=== PATIENT | male | born 1960 ===

== ENCOUNTER → 2016-11-29 | Day surgery (SDC) | payer BC ==
[~2016-11-29] VITALS: Ht 182.9 cm; Wt 95.3 kg
[2016-11-29] VITALS (11 sets, daily range): BP systolic 135–166; BP diastolic 57–98
[~2016-11-29] MED LIST: Bacitracin Oint 15gm Tube TOPIC ONE; Cocaine 4% Vial TOPIC ONE; DiphenhydrAMINE 50mg/ml Inj IVP PRN; Esmolol 100mg/10ml Inj ONE; FISH OIL 1,2001 EAC2 PO; Glycopyrrolate 0.2mg/ml 1ml Vial ONE; Hydromorphone 0.5mg/0.5ml inj IVP PRN; Kenalog-40 1ml Vial ONE; Ketorolac 30mg Inj IV PRN; LORazepam Inj 2mg/ml 1ml IV PRN; LR 1000ml 1,000 ML IVLG SCH; LR 1000ml ONE; Labetalol 5mg/ml 20ml vial IV PRN; Lidocaine 1% 10mg/ml/Epi 0.005mg/ml 30ml vial INJ ONE; MULTIVITAMINS1 EAC2 ORAL; Meperidine 25mg/ml Inj IV PRN; Metoclopramide 10mg/2ml Inj IVP PRN; Midazolam 2mg/2ml Inj IVP PRN; Midazolam 2mg/2ml Inj ONE; NS Irrig 1000ml ONE; Neostigmine 1mg/ml 10ml Inj ONE; Oxymetazoline 0.05% Na Spray 30ml NASAL ONE; Propofol 10mg/ml 100ml btl IV ONE; Sterile Water Irrig 1000ml IRRIG ONE; Surgicel 4in x 8in TOPIC ONE; VITAMIN C500 M1 ORAL; Zemuron 50mg/5ml Inj IV ONE; ceFAZolin sod 1 GM in NS 55 ML IVPB ONE; fentaNYL 100 mcg/2 mL IV PRN; fentaNYL 250mcg/5ml ONE
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
--- NOTE | 2016-11-29 11:41 | Anethesia Preoperative Eval ---
Anesthesia Pre-op PMH/ROS General Date of Evaluation: Nov 29, 2016 Time of Evaluation: 10:05 Anesthesiologist: Zakiya ASA Score: ASA 2 Mallampati Score Class I : Soft palate, uvula, fauces, pillars visible Class II: Soft palate, uvula, fauces visible Class III: Soft palate, base of uvula visible Class IV: Only hard plate visible Mallampati Classification: Class III Surgeon: Daiana Diagnosis: nasalseptal deviation Anesthesia History: other - no complications Family History: no anesthesia problems Allergies: Coded Allergies: CODEINE (Verified Adverse Reaction, Intermediate, NAUSEA, 11/28/16) Medications: see eMAR Past Medical History PSxH Narrative: appy Anesthesia Pre-op Phys. Exam Physician Exam Last Vital Signs Date Time Temp Pulse Resp B/P Pulse Ox O2 Delivery O2 Flow Rate FiO2 11/29/16 10:51 98.1 76 18 135/90 98 Room Air Constitutional: NAD Neurologic: CN 2-12 intact Cardiovascular: RRR Respiratory: CTA Gastrointestinal: other - deferred Airway Exam Mallampati Score: Class III MO: full - Thick tongue ROM: full Anesthesia Pre-op A/P Risk Assessment & Plan Plan: JASON CAVAZOS M.D. Nov 29, 2016 11:41
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
--- NOTE | 2016-11-29 16:00 | Immediate Post-Op Evaluation ---
Immediate Post-Op Evalulation Immediate Post-Op Evalulation Procedure: Septoplasty Date of Evaluation: Nov 29, 2016 Time of Evaluation: 15:06 IV Fluids: 1600 Blood Products: none Estimated Blood Loss: 50 Urinary Output: none Blood Pressure Systolic: 142 Blood Pressure Diastolic: 85 Pulse Rate: 78 Respiratory Rate: 20 O2 Sat by Pulse Oximetry: 98 Temperature (Fahrenheit): 97.6 Pain Score (1-10): 2 Nausea: No Vomiting: No Complications none Patient Status: reacts, patent, extubated, none Hydration Status: adequate NATA WALDROP M.D. Nov 29, 2016 16:00
--- NOTE | 2016-11-29 16:03 | 48 Hour Post Anesthesia Eval ---
Post Anesthesia Evaluation Procedure: Septoplasty Date of Evaluation: Nov 29, 2016 Time of Evaluation: 16:01 Blood Pressure Systolic: 128 0: 82 Pulse Rate: 74 Respiratory Rate: 20 Temperature (Fahrenheit): 97.6 O2 Sat by Pulse Oximetry: 98 Airway: patent Nausea: No Vomiting: No Pain Intensity: 2 Hydration Status: adequate Cardiopulmonary Status: stable Mental Status/LOC: patient returned to baseline Follow-up Care/Observations: n/a Post-Anesthesia Complications: none Follow-up care needed: ready to discharge NATA WALDROP M.D. Nov 29, 2016 16:03
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
== END | disposition home or self-care (01) ==
LOC: SUR 09:17
DX: S02.2XXA Fracture of nasal bones, initial encounter for closed fracture (principal); Y08.89XA Assault by other specified means, initial encounter; Y92.89 Other specified places as the place of occurrence of the external cause; Y99.9 Unspecified external cause status; H40.009 Preglaucoma, unspecified, unspecified eye; E29.1 Testicular hypofunction; F43.10 Post-traumatic stress disorder, unspecified; Z88.5 Allergy status to narcotic agent; Z90.49 Acquired absence of other specified parts of digestive tract
CPT/HCPCS: 21335; 30420; 30802; J0690; J1170; J1885; J2250; J2704; J2710; J2765; J3010; J7120; 94003; 94150